=== PATIENT | male | born 1985 | race American Indian/Alaskan Native ===

== ENCOUNTER 2017-09-09 17:42 | Emergency (ER) | payer MEDICAID, OTHER ==
[2017-09-09 17:59] VITALS: BP 151/114
[2017-09-09] MEDS ORDERED: Acetaminophen/oxyCODONE 325-5 MG Tab PO ONE (18:26)
--- NOTE | 2017-09-09 18:29 | EDM.PDOC ---
ED HPI GENERAL MEDICAL PROBLEM - General Chief Complaint: General Stated Complaint: [id number] PAIN WITH A STOMA Time Seen by Provider: 09/09/17 18:13 Source of Information: Reports: Patient, RN, RN Notes Reviewed History Limitations: Reports: No Limitations - History of Present Illness INITIAL COMMENTS - FREE TEXT/NARRATIVE: Patient presents to ER with complaint of pain at stoma site. Patient states he last took Percocet yesterday a.m. He states he ran out of Percocet and it having pain at 6/10. No fever or chills. Patient was diagnosed with cancer at [facility] in February 2016. Onset: Gradual Duration: Getting Worse Location: Reports: Abdomen Quality: Reports: Ache Severity: Severe Improves with: Reports: None Worsens with: Reports: None Associated Symptoms: Reports: No Other Symptoms Abdomen Pain Score (Numeric/FACES): 8 - Related Data Allergies Allergy/AdvReac Type Severity Reaction Status Date / Time No Known Allergies Allergy Verified 09/09/17 18:08 Home Meds: Home Meds oxyCODONE HCl/Acetaminophen [oxyCODONE-Acetaminophen 5-325] 1 tab PO Q6H PRN 06/04 [History] Past Medical History HEENT History: Reports: Impaired Vision Gastrointestinal History: Reports: Other (See Below) Other Gastrointestinal History: Diverticulitis - Past Surgical History Musculoskeletal Surgical History: Reports: Arthroscopic Knee, Other (See Below) Social & Family History - Family History Family Medical History: Noncontributory - Caffeine Use Caffeine Use: Reports: Coffee, Soda Course - Vital Signs Last Recorded V/S: Last Vital Signs Temp 98.3 F 09/09/17 17:58 Pulse 93 09/09/17 17:58 Resp 18 09/09/17 17:58 BP 151/114 H 09/09/17 17:58 Pulse Ox 100 09/09/17 17:58 Departure - Discharge Information Referrals: Quincy Wadsworth MD [Primary Care Provider] -
--- NOTE | 2017-09-09 18:30 | EDM.PDOC ---
ED HPI GENERAL MEDICAL PROBLEM - General Chief Complaint: General Stated Complaint: [id number] PAIN WITH A STOMA Time Seen by Provider: 09/09/17 18:13 Source of Information: Reports: Patient, RN, RN Notes Reviewed History Limitations: Reports: No Limitations - History of Present Illness INITIAL COMMENTS - FREE TEXT/NARRATIVE: Patient presents to ER with complaint of pain at stoma site. Patient states he last took Percocet yesterday a.m. He states he ran out of Percocet and is having pain 08/28. No fever or chills. Patient was diagnosed with cancer at [facility] in February 2016. Onset: Gradual Duration: Getting Worse Location: Reports: Abdomen Quality: Reports: Ache Severity: Severe Improves with: Reports: None Worsens with: Reports: None Associated Symptoms: Reports: No Other Symptoms Abdomen Pain Score (Numeric/FACES): 8 - Related Data Allergies Allergy/AdvReac Type Severity Reaction Status Date / Time No Known Allergies Allergy Verified 09/09/17 18:08 Home Meds: Home Meds oxyCODONE HCl/Acetaminophen [oxyCODONE-Acetaminophen 5-325] 1 tab PO Q6H PRN 06/04 [History] Past Medical History HEENT History: Reports: Impaired Vision Gastrointestinal History: Reports: Other (See Below) Other Gastrointestinal History: Diverticulitis Oncologic (Cancer) History: Reports: Colon - Past Surgical History Musculoskeletal Surgical History: Reports: Arthroscopic Knee, Other (See Below) Social & Family History - Family History Family Medical History: Noncontributory - Caffeine Use Caffeine Use: Reports: Coffee, Soda ED ROS GENERAL - Review of Systems Review Of Systems: ROS reveals no pertinent complaints other than HPI. ED EXAM, GENERAL - Physical Exam Exam: See Below Exam Limited By: No Limitations General Appearance: Alert, WD/WN, No Apparent Distress Eye Exam: Bilateral Eye: Normal Inspection Ears: Normal External Exam, Normal Canal, Hearing Grossly Normal, Normal TMs Nose: Normal Inspection, Normal Mucosa, No Blood Throat/Mouth: Normal Inspection, Normal Lips, Normal Teeth, Normal Gums, Normal Oropharynx, Normal Voice, No Airway Compromise Head: Atraumatic, Normocephalic Neck: Normal Inspection, Supple, Non-Tender, Full Range of Motion Respiratory/Chest: No Respiratory Distress Cardiovascular: Normal Peripheral Pulses, Regular Rate, Rhythm, No Edema, No Gallop, No JVD, No Murmur, No Rub (Male) Exam: Deferred Rectal (Males) Exam: Deferred Course - Vital Signs Last Recorded V/S: Last Vital Signs Temp 98.3 F 09/09/17 17:58 Pulse 93 09/09/17 17:58 Resp 18 09/09/17 17:58 BP 151/114 H 09/09/17 17:58 Pulse Ox 100 09/09/17 17:58 - Orders/Labs/Meds Meds: Medications Discontinued Medications Generic Name Dose Route Start Last Admin Trade Name Henrique PRN Reason Stop Dose Admin Oxycodone/Acetaminophen 2 tab 09/09/17 18:26 Percocet 325-5 Mg PO 09/09/17 18:27 ONETIME ONE Departure - Departure Time of Disposition: 18:28 Disposition: Home, Self-Care 01 Condition: Fair Clinical Impression: Pain, Colostomy complication Colon cancer Qualifiers: Colon location: unspecified part of colon Qualified Code(s): C18.9 - Malignant neoplasm of colon, unspecified - Discharge Information Instructions: Pain Medicine Instructions, [id number] Referrals: Quincy Wadsworth MD [Primary Care Provider] - Forms: ED Department Discharge Additional Instructions: Follow up with your oncologist on Tuesday morning RX: Percocet
== END 2017-09-09 18:43 | disposition home or self-care (01) ==
LOC: DL.ED 17:42
DX: T85.848A Pain due to other internal prosthetic devices, implants and grafts, initial encounter (principal); C18.9 Malignant neoplasm of colon, unspecified; Z93.3 Colostomy status; Z79.899 Other long term (current) drug therapy; Z79.52 Long term (current) use of systemic steroids
CPT/HCPCS: 99283; A9270

== ENCOUNTER 2017-10-28 02:00 | Emergency (ER) | payer MEDICAID, OTHER ==
[2017-10-28] MEDS ORDERED: Sodium Chloride 0.9% 1,000 ML IV ONE (02:05)
[2017-10-28 02:06] VITALS: BP 145/86
[2017-10-28] MEDS ORDERED: fentaNYL 100 MCG/2 ML SDV IVPUSH ONE (02:27)
[2017-10-28] MEDS ORDERED: Pantoprazole 40 MG Vial IVPUSH ONE ×2 (02:31→02:41)
[2017-10-28 02:35] LABS: ANION GAP 9.7; CHLORIDE,CL 106 mmol/L (101-111); SODIUM,NA 140 mmol/L (135-145)
[2017-10-28] MEDS ORDERED: Iopamidol 612 MG/ML 100 ML Bottle IVPUSH ONE (02:36)
--- NOTE | 2017-10-28 04:11 | EDM.PDOC ---
ED HPI GENERAL MEDICAL PROBLEM - General Chief Complaint: Abdominal Pain Stated Complaint: ABD PAIN [id number] Time Seen by Provider: 10/28/17 02:00 Source of Information: Reports: Patient, Family History Limitations: Reports: No Limitations - History of Present Illness INITIAL COMMENTS - FREE TEXT/NARRATIVE: C/o severe crampy abdominal pain, started increase pain 4 days ago, worsening past 2, tonight one emesis. Decreased solid stool in colostomy bag, passing some gas feeling better after, current pain 11/28 Has not noticed blood in emesis or stool. Hx stage [address] in [place] in June tumor low abdomen in area of pain and around lymph glands. Low Hgb detected in routine lab and transfused 2 units on Tuesday. Hgb 5.8. Two weeks prior had been 12. Started Iron infusions this week. F/U in [place] 2 weeks. Abdomen Pain Score (Numeric/FACES): 9 - Related Data Allergies Allergy/AdvReac Type Severity Reaction Status Date / Time No Known Allergies Allergy Verified 10/28/17 02:38 Home Meds: Home Meds oxyCODONE HCl/Acetaminophen [oxyCODONE-Acetaminophen 5-325] 2 tab PO BID [History] Ondansetron [Zofran ODT] 4 mg PO Q6H PRN 10/24/17 [History] Pantoprazole Sodium [Protonix] 40 mg PO DAILY 10/28/17 [History] Prochlorperazine Maleate 10 mg PO Q8HR PRN 10/28/17 [History] Past Medical History HEENT History: Reports: Impaired Vision Gastrointestinal History: Reports: Other (See Below) Other Gastrointestinal History: Diverticulitis Oncologic (Cancer) History: Reports: Colon - Past Surgical History GI Surgical History: Reports: Colostomy Musculoskeletal Surgical History: Reports: Arthroscopic Knee, Other (See Below) Social & Family History - Family History Family Medical History: Noncontributory - Tobacco Use Smoking Status *Q: Current Every Day Smoker Years of Tobacco use: 2 Packs/Tins Daily: 0.1 Second Hand Smoke Exposure: Yes - Caffeine Use Caffeine Use: Reports: Coffee, Soda - Recreational Drug Use Recreational Drug Use: Yes Drug Use in Last 12 Months: Yes Recreational Drug Type: Reports: Marijuana/Hashish Recreational Drug Use Frequency: Daily ED ROS GENERAL - Review of Systems Review Of Systems: ROS reveals no pertinent complaints other than HPI. ED EXAM, GI/ABD - Physical Exam Exam: See Below Exam Limited By: No Limitations General Appearance: Alert, Moderate Distress Eyes: Bilateral: EOMI Ears: Normal External Exam Nose: Normal Inspection Throat/Mouth: Normal Inspection Head: Atraumatic, Normocephalic Neck: Normal Inspection Respiratory/Chest: No Respiratory Distress, Lungs Clear, Normal Breath Sounds Cardiovascular: Normal Peripheral Pulses, Regular Rate, Rhythm GI/Abdominal Exam: Soft, Tender, Abnormal Bowel Sounds (tympanic mid) Course - Vital Signs Last Recorded V/S: Last Vital Signs Temp 98.3 F 10/28/17 02:02 Pulse 78 10/28/17 02:02 Resp 18 10/28/17 02:02 BP 145/86 H 10/28/17 02:02 Pulse Ox 100 10/28/17 02:02 - Orders/Labs/Meds Orders: Active Orders 24 hr Category Date Time Status Abdomen Pelvis w Cont [CT] Urgent Exams 10/28/17 02:33 Taken CULTURE BLOOD [BC] Stat Lab 10/28/17 02:05 Received Hemoccult, Stool [OCCULT BLOOD DIAGNOSTIC] [OP] Stat Lab 10/28/17 02:21 Ordered UA W/MICROSCOPIC [URIN] Stat Lab 10/28/17 02:33 Ordered Sodium Chloride 0.9% [Normal Saline] 1,000 ml Med 10/28/17 02:05 Active IV .BOLUS Blood Culture x2 Reflex Set [OM.PC] Stat Oth 10/28/17 02:04 Ordered Medication Orders Sodium Chloride (Normal Saline) 1,000 mls @ 250 mls/hr IV .BOLUS ONE Stop: 10/28/17 06:04 Last Admin: 10/28/17 02:13 Dose: 250 mls/hr Labs: Laboratory Tests 10/28/17 10/28/17 10/28/17 Range/Units 02:05 02:05 02:05 WBC 3.9 L (5.0-10.0) 10^3/uL RBC 4.17 L (4.6-6.2) 10^6/uL Hgb 9.7 L D (14.0-18.0) g/dL Hct 32.5 L (40.0-54.0) % MCV 77.9 L (80-100) fL MCH 23.3 L (27.0-34.0) pg MCHC 29.8 L (33.0-35.0) g/dL Plt Count 415 D (150-450) 10^3/uL Neut % (Auto) 53.5 (42.2-75.2) % Lymph % (Auto) 22.8 (20.5-50.1) % [place] % (Auto) 16.0 H (2-8) % Eos % (Auto) 6.9 H (1.0-3.0) % Baso % (Auto) 0.8 (0.0-1.0) % Add Manual Diff Yes Neutrophils % (Manual) 44 (42-75) % Band Neutrophils % 15 % Lymphocytes % (Manual) 26 (20-50) % Atypical Lymphs % 0 % Monocytes % (Manual) 11 H (2-8) % Eosinophils % (Manual) 3 (1-3) % Basophils % (Manual) 1 Hypochromasia 2+ moderate Poikilocytosis 1+ slight Anisocytosis 1+ slight Sodium 140 (135-145) mmol/L Potassium 3.7 (3.6-5.0) mmol/L Chloride 106 (101-111) mmol/L Carbon Dioxide 28.0 (21.0-31.0) mmol/L Anion Gap 9.7 BUN 6 L (7-18) mg/dL Creatinine 0.7 (0.6-1.3) mg/dL Est Cr Clr Drug Dosing 169.37 mL/min Estimated GFR (MDRD) > 60 BUN/Creatinine Ratio 8.57 Glucose 106 H (74-105) mg/dL Lactic Acid 0.8 (0.5-2.2) mmol/L Calcium 8.9 (8.4-10.2) mg/dl Total Bilirubin 0.4 (0.2-1.0) mg/dL AST 27 (10-42) IU/L ALT 19 (10-60) IU/L Alkaline Phosphatase 29 L (42-121) IU/L Total Protein 7.2 (6.7-8.2) g/dl Albumin 3.9 (3.2-5.5) g/dl Globulin 3.3 Albumin/Globulin Ratio 1.18 Amylase 33 (28-100) U/L Lipase 22 (22-51) U/L Meds: Medications Generic Name Dose Route Start Last Admin Trade Name Freq PRN Reason Stop Dose Admin Sodium Chloride 1,000 mls @ 250 mls/hr 10/28/17 02:05 10/28/17 02:13 Normal Saline IV 10/28/17 06:04 250 mls/hr .BOLUS ONE Administration Discontinued Medications Generic Name Dose Route Start Last Admin Trade Name Henrique PRN Reason Stop Dose Admin Fentanyl 50 mcg 10/28/17 02:27 10/28/17 02:41 Sublimaze IVPUSH 10/28/17 02:28 50 mcg ONETIME ONE Administration Iopamidol 100 ml 10/28/17 02:36 10/28/17 03:08 Isovue-300 (61%) IVPUSH 10/28/17 02:37 100 ml ONETIME ONE Administration Pantoprazole Sodium 80 mg 10/28/17 02:31 Protonix Iv IVPUSH 10/28/17 02:32 .BOLUS ONE Pantoprazole Sodium 40 mg 10/28/17 02:41 10/28/17 02:47 Protonix Iv IVPUSH 10/28/17 02:42 40 mg ONETIME ONE Administration - Radiology Interpretation Free Text/Narrative:: Small bowel obstruction - Re-Assessments/Exams Free Text/Narrative Re-Assessment/Exam: 10/28/17 05:02 Dr Srinivasan accepting of patient for further management of small bowel obstruction. Tx via LRAS. Patient has been resting comfortably since Fentanyl given. 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 - Discharge Information Forms: ED Department Discharge - My Orders Last 24 Hours: My Active Orders 10/28/17 02:04 Blood Culture x2 Reflex Set [OM.PC] Stat 10/28/17 02:05 CULTURE BLOOD [BC] Stat Sodium Chloride 0.9% [Normal Saline] 1,000 ml IV .BOLUS 10/28/17 02:21 Hemoccult, Stool [OCCULT BLOOD DIAGNOSTIC] [OP] Stat 10/28/17 02:33 Abdomen Pelvis w Cont [CT] Urgent UA W/MICROSCOPIC [URIN] Stat - Assessment/Plan Last 24 Hours: My Active Orders 10/28/17 02:04 Blood Culture x2 Reflex Set [OM.PC] Stat 10/28/17 02:05 CULTURE BLOOD [BC] Stat Sodium Chloride 0.9% [Normal Saline] 1,000 ml IV .BOLUS 10/28/17 02:21 Hemoccult, Stool [OCCULT BLOOD DIAGNOSTIC] [OP] Stat 10/28/17 02:33 Abdomen Pelvis w Cont [CT] Urgent UA W/MICROSCOPIC [URIN] Stat
== END 2017-10-28 05:23 | disposition home or self-care (01) ==
LOC: DL.ED 02:00
DX: K56.609 Unspecified intestinal obstruction, unspecified as to partial versus complete obstruction (principal); K94.00 Colostomy complication, unspecified; C18.9 Malignant neoplasm of colon, unspecified; F17.210 Nicotine dependence, cigarettes, uncomplicated; D61.1 Drug-induced aplastic anemia
CPT/HCPCS: 36415; 74177; 80053; 82150; 82272; 83605; 83690; 85025; 87040; 96361; 96374; 96375; 99285; C9113; J3010; J7030; Q9967

== ENCOUNTER → 2018-08-10 | Outpatient (CLI) | payer MEDICAID, OTHER ==
[~2018-08-10] MED LIST: Barium Sulfate 0.1% Susp 450 ML Bottle PO ONE; Iopamidol 612 MG/ML 100 ML Bottle IVPUSH ONE; Sodium Chloride 0.9% 10 ML Syringe FLUSH ONE
--- NOTE | 2018-08-10 15:14 | CT ---
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 SCAN TECHNIQUE: Volume acquisition of data from the abdomen and pelvis obtained after oral ingestion "most of 3 bottles" of the Volumen and during/after the intravenous infusion 100 cc nonionic Isovue contrast 3 cc/s via injector (enterography technique) while the patient was lying supine on the Siemens multislice scanner [place], [place]. All data archived in the PACS system for storage, reformatting axial/sagittal/coronal planes and study. Comparison CT exam abdomen and pelvis, 28 October 2017. INTERPRETATION: Abnormal. 1. Several round "cannonball" like mass lesions identified in lower lobes lung, bilaterally. No pleural effusion. 2. Multiple low-attenuation lesions scattered throughout the liver. No dilatation intra or extra hepatic biliary ducts. Normal gallbladder. 3. Ventral wall defect with bowel loops extending extraperitoneally in the subcutaneous tissues communicating with ileostomy. 4. Several large (3-9 cm diameter) subcutaneous mixed density mass lesions anterior abdominal wall located around the ostomy. 5. Mesenteric and retroperitoneal lymphadenopathy (largest davida mass on the left obstructing the ipsilateral mid ureter nonfunctioning left kidney). Large davida mass ("dropped" metastases?) in the pelvis, posteriorly. No ascites. 6. Stomach, spleen, pancreas and adrenal glands unremarkable. Normal caliber aortoiliac vessels. 7. Hypertrophic spondylosis and multilevel lower lumbar disc disease. No pathologic skeletal lesion, lumbar fracture/dislocation. CONCLUSION: Widespread metastatic disease (lung, liver, retroperitoneum, pelvis and anterior body wall) new since October 2017.
== END ==
LOC: DL.CT 09:42
PROVIDERS: ATTEND Internal Medicine Gastroenterology
DX: C18.9 Malignant neoplasm of colon, unspecified (principal); C79.9 Secondary malignant neoplasm of unspecified site
CPT/HCPCS: 74177; J1642; Q9967

== ENCOUNTER 2018-08-25 18:29 | Emergency (ER) | payer MEDICAID, OTHER ==
--- NOTE | 2018-08-25 19:28 | EDM.PDOC ---
ED HPI GENERAL MEDICAL PROBLEM - General Chief Complaint: General Stated Complaint: SOB,LOW BLOOD COUNT Time Seen by Provider: 08/25/18 19:10 Source of Information: Reports: Patient History Limitations: Reports: No Limitations - History of Present Illness INITIAL COMMENTS - FREE TEXT/NARRATIVE: This 33 yo male patient reports to the ED with generalized weakness over the past 24 hours. The patient reports he has a history of colon cancer, but has not had treatment for the past 6 months. The patient was last seen by Dr. Corbin about 2 weeks ago (his hemoglobin was 8.6 at that time). The patient has had numerous blood transfusions in the past with his last transfusion on July 24. The patient has a colostomy and noticed some blood 4-5 days ago, but nothing since that time. The patient reports he currently feels like he has in the past when his blood was low. Onset: Today Duration: Constant Location: Reports: Generalized Quality: Reports: Other Severity: Moderate Improves with: Reports: None Worsens with: Reports: None Context: Reports: Other Associated Symptoms: Reports: No Other Symptoms Abdominal Pain Score (Numeric/FACES): 5 Lower Back Pain Score (Numeric/FACES): 5 - Related Data Allergies Allergy/AdvReac Type Severity Reaction Status Date / Time No Known Allergies Allergy Verified 08/25/18 18:51 Home Meds: Home Meds Ondansetron [Zofran ODT] 4 mg PO Q8H PRN 10/24/17 [History] Pantoprazole Sodium [Protonix] 40 mg PO DAILY 10/28/17 [History] Acetaminophen [Tylenol Extra Strength] 1 - 2 tab PO ASDIRECTED PRN 03/24/18 [ History] Ibuprofen 1 - 4 tab PO ASDIRECTED PRN 03/24/18 [History] Loperamide [Imodium] 1 - 2 tab PO ASDIRECTED PRN 03/24/18 [History] Polyethylene Glycol 3350 [Miralax] 17 gm PO BID 03/24/18 [History] fentaNYL [Fentanyl] 100 mcg TOP DAILY 07/03/18 [History] oxyCODONE ER [OxyCONTIN] 20 mg PO Q4HR 07/03/18 [History] oxyCODONE HCl [Oxycodone HCl ER] 80 mg PO BEDTIME 07/03/18 [History] Past Medical History HEENT History: Reports: Impaired Vision Cardiovascular History: Reports: None Respiratory History: Reports: None Gastrointestinal History: Reports: Other (See Below) Other Gastrointestinal History: Diverticulitis, COLON CA WITH METS TO SMALL INTESTINE Genitourinary History: Reports: None Musculoskeletal History: Reports: None Neurological History: Reports: None Psychiatric History: Reports: None Endocrine/Metabolic History: Reports: None Hematologic History: Reports: Anemia, Blood Transfusion(s) Immunologic History: Reports: Immunosuppression Oncologic (Cancer) History: Reports: Colon Dermatologic History: Reports: None - Infectious Disease History Infectious Disease History: Reports: None - Past Surgical History HEENT Surgical History: Reports: None Cardiovascular Surgical History: Reports: None GI Surgical History: Reports: Colostomy, Other (See Below) Other GI Surgeries/Procedures: ostomy DUE TO COLON CA Male Surgical History: Reports: None Neurological Surgical History: Reports: None Musculoskeletal Surgical History: Reports: Arthroscopic Knee, Other (See Below) Social & Family History - Family History Family Medical History: Noncontributory - Tobacco Use Smoking Status *Q: Never Smoker - Caffeine Use Caffeine Use: Reports: Soda Caffeine Use Comment: 24OZ DAILY - Recreational Drug Use Recreational Drug Use: Yes Recreational Drug Type: Reports: Marijuana/Hashish Recreational Drug Use Frequency: Daily ED ROS GENERAL - Review of Systems Review Of Systems: ROS reveals no pertinent complaints other than HPI. ED EXAM, GENERAL - Physical Exam Exam: See Below Exam Limited By: No Limitations General Appearance: Alert, WD/WN, Moderate Distress, Thin Eye Exam: Bilateral Eye: EOMI, Normal Inspection, PERRL Ears: Normal External Exam, Normal Canal, Hearing Grossly Normal, Normal TMs Nose: Normal Inspection, Normal Mucosa, No Blood Throat/Mouth: Normal Inspection, Normal Lips, Normal Teeth, Normal Gums, Normal Oropharynx, Normal Voice, No Airway Compromise Head: Atraumatic, Normocephalic Neck: Normal Inspection, Supple, Non-Tender, Full Range of Motion Respiratory/Chest: No Respiratory Distress, Lungs Clear, Normal Breath Sounds, No Accessory Muscle Use, Chest Non-Tender Cardiovascular: Normal Peripheral Pulses, Regular Rate, Rhythm, No Edema, No Gallop, No JVD, No Murmur, No Rub GI/Abdominal: Normal Bowel Sounds, Soft, Non-Tender, No Organomegaly, No Distention, No Abnormal Bruit, No Mass (Male) Exam: Deferred Rectal (Males) Exam: Deferred Back Exam: Normal Inspection, Full Range of Motion, NT Extremities: Normal Inspection, Normal Range of Motion, Non-Tender, Normal Capillary Refill, No Pedal Edema Neurological: Alert, Oriented, CN II-XII Intact, Normal Cognition, Normal Gait, Normal Reflexes, No Motor/Sensory Deficits Psychiatric: Normal Affect, Normal Mood Skin Exam: Warm, Dry, Intact, Normal Color, No Rash Lymphatic: No Adenopathy Course - Vital Signs Last Recorded V/S: Last Vital Signs Temp 37.4 C 08/25/18 18:44 Pulse 61 08/25/18 18:44 Resp 16 08/25/18 18:44 BP 137/87 08/25/18 18:44 Pulse Ox 96 08/25/18 18:44 - Orders/Labs/Meds Orders: Active Orders 24 hr Category Date Time Status CULTURE BLOOD [BC] Stat Lab 08/25/18 19:05 Received RED BLOOD CELLS LP [BBK] Stat Lab 08/25/18 19:18 Results TYPE AND SCREEN [BBK] Stat Lab 08/25/18 19:18 Results Sodium Chloride 0.9% [Normal Saline] 1,000 ml Med 08/25/18 19:39 Active IV .BOLUS Medication Orders Sodium Chloride (Normal Saline) 1,000 mls @ 500 mls/hr IV .BOLUS ONE Stop: 08/25/18 21:38 Last Admin: 08/25/18 19:45 Dose: 500 mls/hr Labs: Laboratory Tests 08/25/18 08/25/18 08/25/18 Range/Units 19:05 19:05 19:05 WBC 4.3 L (5.0-10.0) 10^3/uL RBC 3.10 L (4.6-6.2) 10^6/uL Hgb 6.6 L* D (14.0-18.0) g/dL Hct 21.6 L (40.0-54.0) % MCV 69.7 L D (80-100) fL MCH 21.3 L (27.0-34.0) pg MCHC 30.6 L (33.0-35.0) g/dL Plt Count 557 H D (150-450) 10^3/uL Neut % (Auto) 69.0 (42.2-75.2) % Lymph % (Auto) 18.3 L (20.5-50.1) % [place] % (Auto) 10.8 H (2-8) % Eos % (Auto) 1.4 (1.0-3.0) % Baso % (Auto) 0.5 (0.0-1.0) % Sodium 132 L (135-145) mmol/L Potassium 3.6 (3.6-5.0) mmol/L Chloride 97 L (101-111) mmol/L Carbon Dioxide 25.0 (21.0-31.0) mmol/L Anion Gap 13.6 BUN 13 (7-18) mg/dL Creatinine 0.9 (0.6-1.3) mg/dL Est Cr Clr Drug Dosing 114.45 mL/min Estimated GFR (MDRD) > 60 BUN/Creatinine Ratio 14.44 Glucose 110 H (74-105) mg/dL Lactic Acid 0.7 (0.5-2.2) mmol/L Calcium 7.7 L (8.4-10.2) mg/dl Total Bilirubin 0.9 (0.2-1.0) mg/dL AST 17 (10-42) IU/L ALT 12 (10-60) IU/L Alkaline Phosphatase 28 L (42-121) IU/L Total Protein 5.9 L (6.7-8.2) g/dl Albumin 2.7 L (3.2-5.5) g/dl Globulin 3.2 Albumin/Globulin Ratio 0.84 Blood Type Gel Antibody Screen Crossmatch 08/25/18 Range/Units 19:18 WBC (5.0-10.0) 10^3/uL RBC (4.6-6.2) 10^6/uL Hgb (14.0-18.0) g/dL Hct (40.0-54.0) % MCV (80-100) fL MCH (27.0-34.0) pg MCHC (33.0-35.0) g/dL Plt Count (150-450) 10^3/uL Neut % (Auto) (42.2-75.2) % Lymph % (Auto) (20.5-50.1) % [place] % (Auto) (2-8) % Eos % (Auto) (1.0-3.0) % Baso % (Auto) (0.0-1.0) % Sodium (135-145) mmol/L Potassium (3.6-5.0) mmol/L Chloride (101-111) mmol/L Carbon Dioxide (21.0-31.0) mmol/L Anion Gap BUN (7-18) mg/dL Creatinine (0.6-1.3) mg/dL Est Cr Clr Drug Dosing mL/min Estimated GFR (MDRD) BUN/Creatinine Ratio Glucose (74-105) mg/dL Lactic Acid (0.5-2.2) mmol/L Calcium (8.4-10.2) mg/dl Total Bilirubin (0.2-1.0) mg/dL AST (10-42) IU/L ALT (10-60) IU/L Alkaline Phosphatase (42-121) IU/L Total Protein (6.7-8.2) g/dl Albumin (3.2-5.5) g/dl Globulin Albumin/Globulin Ratio Blood Type O POSITIVE Gel Antibody Screen Negative Crossmatch See Detail Meds: Medications Generic Name Dose Route Start Last Admin Trade Name Freq PRN Reason Stop Dose Admin Sodium Chloride 1,000 mls @ 500 mls/hr 08/25/18 19:39 08/25/18 19:45 Normal Saline IV 08/25/18 21:38 500 mls/hr .BOLUS ONE Administration Discontinued Medications Generic Name Dose Route Start Last Admin Trade Name Freq PRN Reason Stop Dose Admin Hydromorphone HCl 1 mg 08/25/18 20:54 Dilaudid IVPUSH 08/25/18 20:55 ONETIME ONE Ondansetron HCl 4 mg 08/25/18 19:39 08/25/18 19:45 Zofran IV 08/25/18 19:40 4 mg ONETIME ONE Administration Departure - Departure Time of Disposition: 20:56 Disposition: DC/Tfer to Acute Hospital 02 Condition: Fair Clinical Impression: GI bleed Qualifiers: GI bleed type/associated pathology: unspecified gastrointestinal hemorrhage type Qualified Code(s): K92.2 - Gastrointestinal hemorrhage, unspecified - Discharge Information *PRESCRIPTION DRUG MONITORING PROGRAM REVIEWED*: Not Applicable *COPY OF PRESCRIPTION DRUG MONITORING REPORT IN PATIENT JENNIFER: Not Applicable Forms: Interfacility Transfer EMTALA Care Plan Goals: Discussed the examination, history, labs and treatments with Dr. Ashley. Dr. Ashley accepted the patient for continued evaluation and further management at [facility] in [place]. The patient will be transported by [facility]. - My Orders Last 24 Hours: My Active Orders 08/25/18 19:05 CULTURE BLOOD [BC] Stat 08/25/18 19:18 RED BLOOD CELLS LP [BBK] Stat TYPE AND SCREEN [BBK] Stat 08/25/18 19:39 Sodium Chloride 0.9% [Normal Saline] 1,000 ml IV .BOLUS - Assessment/Plan Last 24 Hours: My Active Orders 08/25/18 19:05 CULTURE BLOOD [BC] Stat 08/25/18 19:18 RED BLOOD CELLS LP [BBK] Stat TYPE AND SCREEN [BBK] Stat 08/25/18 19:39 Sodium Chloride 0.9% [Normal Saline] 1,000 ml IV .BOLUS
[2018-08-25] MEDS ORDERED: Ondansetron 4 MG/2 ML SDV IV ONE (19:39)
[2018-08-25] MEDS ORDERED: Sodium Chloride 0.9% 1,000 ML IV ONE (19:39)
[2018-08-25 19:44] LABS: ANION GAP 13.6; CHLORIDE,CL 97 mmol/L (101-111); SODIUM,NA 132 mmol/L (135-145)
[2018-08-25] MEDS ORDERED: HYDROmorphone 1 MG/ML Syringe IVPUSH ONE (20:54)
[2018-08-25 21:37] VITALS: BP 124/81
== END 2018-08-25 21:53 ==
LOC: DL.ED 18:29
DX: K92.2 Gastrointestinal hemorrhage, unspecified (principal); Z79.899 Other long term (current) drug therapy
CPT/HCPCS: 36415; 36430; 80053; 82272; 83605; 85025; 86850; 86900; 86901; 86920; 86922; 87040; 96365; 96375; 99285; J1170; J2405; J7030; P9016

== ENCOUNTER 2018-11-11 17:12 | Emergency (ER) | payer MEDICAID ==
--- NOTE | 2018-11-11 18:23 | EDM.PDOC ---
ED HPI GENERAL MEDICAL PROBLEM - General Chief Complaint: CPR in Progress Stated Complaint: AMBULANCE Time Seen by Provider: 11/11/18 17:13 Source of Information: Reports: EMS History Limitations: Reports: Other (CPR in progress) - History of Present Illness INITIAL COMMENTS - FREE TEXT/NARRATIVE: This 33 yo male patient was brought to the ED by [facility] due to cardiac arrest. EMS personnel report the patient had been down for approximately 10 minutes prior to their arrival. EMS reports the patient's jaw was clenched throughout the call. The patient initially was in asystole. EMS started an IV and had given 2 doses of Epi and 1/2 amp of D50 upon their initial call. The golf sales manager reported that the patient's rhythm has just changed from asystole to PEA as she was speaking to me. EMS was advised to continue CPR and transport the patient to theED. CPR was in progress upon arrival in the ED. Initial assessment, revealed that the patient was in rigor upon arrival. The patient's skin was pail. The cardiac rehabilitation program director displayed asystole. EMS reports they had been doing CPR and had given the patient 6 doses of Epi, D50 and Sodium Bicarb prior to arrival. Patient's pupils were fixed and dilated. Asystole was assessed with our equipment and confirmed. The code was stopped at 8074. Onset: Today Duration: Constant Location: Reports: Other - Related Data Allergies Allergy/AdvReac Type Severity Reaction Status Date / Time No Known Allergies Allergy Verified 08/25/18 18:51 Home Meds: Home Meds Ondansetron [Zofran ODT] 4 mg PO Q8H PRN 10/24/17 [History] Pantoprazole Sodium [Protonix] 40 mg PO DAILY 10/28/17 [History] Acetaminophen [Tylenol Extra Strength] 1 - 2 tab PO ASDIRECTED PRN 03/24/18 [ History] Ibuprofen 1 - 4 tab PO ASDIRECTED PRN 03/24/18 [History] Loperamide [Imodium] 1 - 2 tab PO ASDIRECTED PRN 03/24/18 [History] Polyethylene Glycol 3350 [Miralax] 17 gm PO BID 03/24/18 [History] fentaNYL [Fentanyl] 100 mcg TOP DAILY 07/03/18 [History] oxyCODONE ER [OxyCONTIN] 20 mg PO Q4HR 04/15/19 [History] oxyCODONE HCl [Oxycodone HCl ER] 80 mg PO BEDTIME 07/03/18 [History] Past Medical History HEENT History: Reports: Impaired Vision Cardiovascular History: Reports: None Respiratory History: Reports: None Gastrointestinal History: Reports: Other (See Below) Other Gastrointestinal History: Diverticulitis, COLON CA WITH METS TO SMALL INTESTINE Genitourinary History: Reports: None Musculoskeletal History: Reports: None Neurological History: Reports: None Psychiatric History: Reports: None Endocrine/Metabolic History: Reports: None Hematologic History: Reports: Anemia, Blood Transfusion(s) Immunologic History: Reports: Immunosuppression Oncologic (Cancer) History: Reports: Colon Dermatologic History: Reports: None - Infectious Disease History Infectious Disease History: Reports: None - Past Surgical History HEENT Surgical History: Reports: None Cardiovascular Surgical History: Reports: None GI Surgical History: Reports: Colostomy, Other (See Below) Other GI Surgeries/Procedures: ostomy DUE TO COLON CA Male Surgical History: Reports: None Neurological Surgical History: Reports: None Musculoskeletal Surgical History: Reports: Arthroscopic Knee, Other (See Below) Social & Family History - Family History Family Medical History: Noncontributory - Caffeine Use Caffeine Use: Reports: Soda Caffeine Use Comment: 24OZ DAILY ED ROS GENERAL - Review of Systems Review Of Systems: ROS reveals no pertinent complaints other than HPI. ED EXAM, CPR - Physical Exam Exam: See Below Limited By: Other (CPR in progress with signs of rigor) General Appearance: Other (CPR in progress) Eye Exam: Bilateral Eye: Other (Fixed and dialated) Ears: Normal External Exam Nose: Normal Inspection, No Blood Throat/Mouth: Other (rigor) Respiratory Chest: Other (ventilated by BVM) Cardiovascular: CPR In Progress Extremities: Pallor Departure - Departure Time of Disposition: 17:14 Disposition: 20 Condition: Critical Clinical Impression: Cardiac arrest - Discharge Information Referrals: PCP,Unknown [Primary Care Provider] - Forms: ED Department Discharge
== END 2018-11-11 20:00 | disposition expired ==
LOC: DL.ED 17:12
DX: I46.9 Cardiac arrest, cause unspecified (principal)
CPT/HCPCS: 99285